=== PATIENT | female | born 1975 | race Caucasian/White ===

== ENCOUNTER 2017-05-18 16:30 | Emergency (ER) | payer MEDICAID, OTHER ==
[2017-05-18 16:46] VITALS: RESP 18; TEMP 98.6; O2SAT 97
--- NOTE | 2017-05-18 17:16 | ED PDOC ---
HPI: Skin/Bite Injury Time Seen by Provider: 05/18/17 16:59 Chief Complaint (Nursing): Abnormal Skin Integrity Chief Complaint (Provider): rash History Per: Patient History/Exam Limitations: no limitations Additional Complaint(s): 41yo F in ED for eval of rash to b/l hands isolated to finger tips. pt is has been having this x5 years, worsened in past couple of days. has tried using triamcolone, however not working as effectively. denies fever, but admits to swelling to finger drainage to fingers and pain with intense itching Past Medical History Reviewed: Historical Data, Nursing Documentation, Vital Signs Vital Signs: Last Vital Signs Temp 98.6 F 05/18/17 16:44 Pulse 104 H 05/18/17 16:44 Resp 18 05/18/17 16:44 BP 153/82 H 05/18/17 16:44 Pulse Ox 97 05/18/17 16:44 - Medical History PMH: No Chronic Diseases - Family History Family History: States: No Known Family Hx - Home Medications Home Medications: Ambulatory Orders Medication Instructions Recorded Cephalexin [cephalexin] 500 mg PO BID #14 cap 05/18/17 Tea Tree Oil 30 ml TP DAILY #1 oil 05/18/17 - Allergies Allergies/Adverse Reactions: Allergies Allergy/AdvReac Type Severity Reaction Status Date / Time No Known Allergies Allergy Unverified 10/08/13 16:28 Review of Systems ROS Statement: Except As Marked, All Systems Reviewed And Found Negative Skin: Positive for: Rash Physical Exam - Reviewed Nursing Documentation Reviewed: Yes Vital Signs Reviewed: Yes - Physical Exam Appears: Positive for: Well, Non-toxic, No Acute Distress Skin: Positive for: Normal Color, Warm, Rash (lesions noted to b/l hands- papular red lesions with excoriation with swellig to digits b/l wrose on right 3rd digit. some serasangious drainage noted. ) Neurologic/Psych: Positive for: Alert, Oriented - ECG O2 Sat by Pulse Oximetry: 97 Medical Decision Making Medical Decision Making: pt most likely with eczema vs psoarisis flare up will be advised to use tea tree oil on hands, continue streroid cream and to use keflex for acute infection advised to have dermatology f/u Disposition - Clinical Impression Clinical Impression: Skin rash - Patient ED Disposition Is Patient to be Admitted: No Counseled Patient/Family Regarding: Diagnosis, Need For Followup, Rx Given - Disposition Referrals: [facility] [Outside] Disposition: Routine/Home Disposition Time: 17:20 Condition: STABLE Prescriptions: Cephalexin [cephalexin] 500 mg PO BID #14 cap Tea Tree Oil 30 ml TP DAILY #1 oil Instructions: Psoriasis (ED), Dermatitis (ED) Forms: [facility] ED School/Work Excuse
[2017-05-18 17:40] VITALS: BP 129/90; PULSE 99
== END 2017-05-18 17:39 | disposition home or self-care (01) ==
LOC: H.ER 16:30
DX: L40.9 Psoriasis, unspecified (principal)